=== PATIENT | female | born 1990 | race Caucasian/White ===

== ENCOUNTER 2018-09-27 05:39 | Day surgery (SDC) | payer OTHER ==
[2018-09-27] MEDS ORDERED: PHENAZOPYRIDINE HCL 200 MG TAB PO ONE (05:53)
[2018-09-27] MEDS ORDERED: GABAPENTIN 300 MG CAP PO ONE (05:53)
[2018-09-27] MEDS ORDERED: ceFAZolin 2 GM/DEXTROSE 100 ML IV ONE (05:53)
[2018-09-27] MEDS ORDERED: ACETAMINOPHEN 500 MG TAB PO ONE (05:53)
[2018-09-27] MEDS ORDERED: LR 1,000 ML IV ONE (05:55)
--- NOTE | 2018-09-27 07:04 | PDANEPAE ---
ANE History of Present Illness 28 year old with endometriosis ANE Past Medical History - Cardiovascular History Hx Hypertension: No Hx Arrhythmias: No Hx Chest Pain: No Hx Coronary Artery / Peripheral Vascular Disease: No Hx CHF / Valvular Disease: No Hx Palpitations: No - Pulmonary History Hx COPD: No Hx Asthma/Reactive Airway Disease: No Hx Recent Upper Respiratory Infection: No Hx Oxygen in Use at Home: No Hx Sleep Apnea: No Sleep Apnea Screening Result - Last Documented: Negative - Neurologic History Hx Cerebrovascular Accident: No Hx Seizures: No Hx Dementia: No - Endocrine History Hx Diabetes: No Endocrine History Comment: jeanette - Renal History Hx Renal Disorders: No - Liver History Hx Hepatic Disorders: No - Neurological & Psychiatric Hx Hx Neurological and Psychiatric Disorders: Yes Neurological / Psychiatric History Comment: anxiety - Cancer History Hx Cancer: No - Congenital Disorder History Hx Congenital Disorders: No - GI History Hx Gastrointestinal Disorders: No Gastrointestinal History Comment: ? ulcerative colitis - Other Health History Other Health History: hashimotos. endometriosis - Chronic Pain History Chronic Pain: Yes (left sciatica) - Surgical History Prior Surgeries: hysterectomy 2017. 2014 endometriosis sx. 2014 breat reconstructive sx ANE Review of Systems Review of systems is: negative Review of Systems: - Exercise capacity METS (RN): 5 METS ANE Patient History - Allergies Allergies/Adverse Reactions: amoxicillin Allergy (Verified 09/14/18 17:14) Rash Penicillins Allergy (Verified 09/14/18 17:14) Rash Pertussis Vaccines Allergy (Verified 09/27/18 06:08) Anaphylaxis - Home Medications Home Medications: Estradiol 1 mg PO DAILY 09/13/18 [Last Taken 09/26/18 22:00] Vitamin B Complex (OTC) 09/13/18 [Last Taken 09/25/18] Levothyroxine 25 mcg PO DAILY 09/14/18 [Last Taken 09/27/18 04:30] - NPO status NPO Since - Liquids (Date): 09/27/18 NPO Since - Liquids (Time): 05:00 NPO Since - Solids (Date): 09/26/18 NPO Since - Solids (Time): 21:00 - Anes Hx Anes Hx: no prior problems - Smoking Hx Smoking Status: Never smoked - Alcohol Use Alcohol Use: None - Family Anes Hx Family Anes Hx: none Family Hx Anesthesia Complications: none ANE Labs/Vital Signs - Vital Signs Blood Pressure: 107/72 Heart Rate: 61 Respiratory Rate: 13 O2 Sat (%): 99 Height: 172.72 cm Weight: 65.771 kg ANE Physical Exam - Airway Neck exam: FROM Mallampati Score: Class 1 Mouth exam: normal dental/mouth exam - Pulmonary Pulmonary: no respiratory distress - Cardiovascular Cardiovascular: regular rate and rhythym - ASA Status ASA Status: II ANE Anesthesia Plan Anesthesia Plan: general endotracheal anesthesia
[2018-09-27] MEDS ORDERED: MIDAZOLAM 2 MG/2 ML VIAL ONE (07:07)
--- NOTE | 2018-09-27 07:07 | PDHPUP ---
History & Physical Update H&P update statement: This history and physical update is based on an assessment of the patient which was completed after admission or registration (within 24 hours), but prior to the surgery/procedure. H&P update: H&P reviewed & patient examined, no change in patient's condition since H&P completed
[2018-09-27] MEDS ORDERED: MIDAZOLAM 2 MG/2 ML VIAL IVP ONE (07:09)
[2018-09-27] MEDS ORDERED: LIDOCAINE 2% 2 ML INJ ONE (07:13)
[2018-09-27] MEDS ORDERED: fentaNYL 250 MCG/5 ML INJ ONE (07:13)
[2018-09-27] MEDS ORDERED: DEXAMETHASONE 4 MG/ML VIAL ONE (07:13)
[2018-09-27] MEDS ORDERED: ROCURONIUM 50 MG/5 ML VIAL ONE (07:13)
[2018-09-27] MEDS ORDERED: PROPOFOL 200 MG/20 ML VIAL ONE (07:13)
[2018-09-27] MEDS ORDERED: BUPIVACAINE/EPI 0.5% 30 ML SDV ONE (07:21)
--- NOTE | 2018-09-27 08:28 | POSTOPPROG ---
Post Op Note Date of Operation: 09/27/18 Surgeon: Angel Jimenez Ground Equipment Mechanic: Abigail Chaudhry Anesthesia: GET(General Endotracheal) Pre-op Diagnosis: Pelvic pain, endometriosis Post-op Diagnosis: Same Procedure: Robotic excision of endo Findings: Mild disease Inf/Abcess present in the surg proc area at time of surgery?: No EBL: Minimal Complications: None
[2018-09-27] MEDS ORDERED: fentaNYL 100 MCG/2 ML INJ IVP PRN (08:43)
[2018-09-27] MEDS ORDERED: PROMETHAZINE HCL 25 MG/ML INJ IVP PRN (08:43)
[2018-09-27] MEDS ORDERED: HYDROmorphONE/DILAUDID 1 MG/ML INJ IVP PRN (08:43)
[2018-09-27] MEDS ORDERED: NALOXONE HCL 0.4 MG/ML INJ IVP PRN (08:43)
--- NOTE | 2018-09-27 08:44 | POSTANESTH ---
Post Anesthetic Evaluation Cardiovascular Status: Normal, Stable Respiratory Status: Normal, Stable Level of Consciousness/Mental Status: Can Participate in Eval Pain Control: Adequate, Prn Tx Ordered Nausea/Vomiting Control: Adequate, Prn Tx Ordered
[2018-09-27] MEDS ORDERED: fentaNYL 100 MCG/2 ML INJ ONE (09:16)
[2018-09-27] MEDS ORDERED: HYDROCODONE/APAP 5/325 TAB PO PRN (09:26)
[2018-09-27] MEDS ORDERED: oxyCODONE IR 5 MG TAB PO PRN (09:32)
[2018-09-27] MEDS ORDERED: ONDANSETRON 4 MG/2 ML VIAL ONE ×2 (09:52→11:53)
[2018-09-27] MEDS: ONDANSETRON 4 MG/2 ML VIAL IVP PRN ×2 (09:54→11:54)
[2018-09-27] MEDS ORDERED: PROMETHAZINE HCL 25 MG/ML INJ ONE (10:13)
[2018-09-27] MEDS ORDERED: oxyCODONE IR 5 MG TAB ONE (10:30)
[2018-09-27 11:57] VITALS: BP 110/72
--- NOTE | 2018-09-27 12:18 | GOP ---
[f rep st] OPERATIVE REPORT DATE OF OPERATION: 09/27/2018 SURGEON: Angel Jimenez MD MANAGER CHEMICAL: Abigail Chaudhry CFA. ANESTHESIA: General. PREOPERATIVE DIAGNOSIS: 1. Endometriosis. 2. Pelvic pain. POSTOPERATIVE DIAGNOSIS: 1. Endometriosis. 2. Pelvic pain. PROCEDURE PERFORMED: 1. Robotic excision of endometriosis off the vaginal cuff and bilateral pelvic sidewalls. 2. Bilateral ureterolysis. FINDINGS: SPECIMENS: Pelvic peritoneum with endometriosis. ESTIMATED BLOOD LOSS: Scant. DESCRIPTION OF PROCEDURE: The patient was taken to the operating room where she was identified. Gen eral anesthesia was administered and found to be adequate. She was placed in the lithotomy position and prepared and draped in normal sterile fashion. A Menendez cath was placed in her bladder. An 8 mm infraumbilical incision was made with a scalpel. The Veress needle with the CO2 gas flowing was advanced into the peritoneal cavity. The abdomen was then insufflated with carbon dioxide gas. The 8 mm trocar followed by the laparoscope were then inserted. The upper abdomen was unremarkable. There was no evidence of endometriosis on either diaphragm, liver, gallbladder, stomach, or upper ab dominal bowel. Two lateral ports were placed in the right and one in the left under direct visualiza tion. She then was placed in Trendelenburg position and the da Sariah robot docked on the left side. The instruments were brought into the abdominal cavity under direct visualization. She had some filmy, white and minimal powder-burn type endometriosis along the vaginal cuff and pelvi c sidewalls. The lesions on the vaginal cuff were excised. Most of the posterior cul-de-sac periton eum was excised from the distal rectum up to the vaginal cuff. Given the lesions overlying both uret ers, a bilateral ureterolysis was required. The peritoneum at the pelvic brims were incised. The ur eters were gently dissected off and lateralized off the overlying peritoneum and endometriosis from t he pelvic brim down to the bladder. Once this was accomplished, the pelvic sidewall peritoneum with endometriosis was then excised. The pelvis was then irrigated with sterile saline and hemostasis was present. The robot was then undocked. The skin was closed with 4-0 Monocryl. Anesthesia was rever sed and the patient taken to PACU awake, in stable condition. COMPLICATIONS: None. DISPOSITION: Patient stable to PACU. /[id number]/MODL
== END 2018-09-27 12:00 | disposition home or self-care (01) ==
LOC: FSGY 05:39
PROVIDERS: ATTEND Obstetrics & Gynecology
DX: N80.3 Endometriosis of pelvic peritoneum (principal); N28.89 Other specified disorders of kidney and ureter
CPT/HCPCS: J0690; J1100; J2250; J2405; J2550; J2704; J3010